=== PATIENT | female | born 1975 | race African-American/Black ===

== ENCOUNTER 2017-06-26 07:12 | Day surgery (SDC) | payer BC ==
[2017-06-25 09:59] VITALS: BMI 37.5
[2017-06-26 12:05] VITALS: TEMP 98.6
[2017-06-26 13:47] VITALS: BP 130/80; PULSE 70
== END 2017-06-26 13:40 | disposition home or self-care (01) ==
LOC: JASU-SURG 07:12
PROVIDERS: ATTEND Obstetrics & Gynecology
PROC: 0UDB7ZX Extraction of Endometrium, Via Natural or Artificial Opening, Diagnostic (ICD-10-PCS; principal; 2017-06-26)
PROC: 0UJD8ZZ Inspection of Uterus and Cervix, Via Natural or Artificial Opening Endoscopic (ICD-10-PCS; 2017-06-26)
DX: N92.0 Excessive and frequent menstruation with regular cycle (principal); N94.6 Dysmenorrhea, unspecified; D25.9 Leiomyoma of uterus, unspecified; E66.01 Morbid (severe) obesity due to excess calories
CPT/HCPCS: 36415; 84703; 86850; 86900; 86901; 88305-TC; 93005; 93010; 94760

== ENCOUNTER 2017-10-02 04:52 | Day surgery (SDC) | payer BC ==
[2017-09-25 16:30] VITALS: BMI 37.5
[~2017-10-02 04:52] MED LIST: BUPIVACAINE HCL/PF (5 MG/ML) 30 ML VIAL IJ ONE
--- NOTE | 2017-10-02 07:45 | HP ---
Past Medical History - Primary Care Physician PCP:: Florencio Childs - Admission Chief Complaint: 42yo P0020 admitted for bilateral tubal ligation. 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 No: Ascites, Cancer, Constipation, Crohn's Disease, Diverticulitis, Diverticulosis, Esophageal Varices, Gastritis, GERD, GI Bleed, Hemorrhoids, Hiatal Hernia, Inflamatory Bowel Disease, Irritable Bowel Disease, Pancreatitis, Peptic Ulcer Disease, Ulcerative Colitis Hepatobiliary: No: Cirrhosis, Cholelithiasis, Cholecystitis, Choledocholithiasis , Hepatitis A, Hepatitis B, Hepatitis C, Other Renal/: No: Renal Failure, Renal Inusuff, BPH, Cancer, Hematuria, Hemodialysis , Neurogenic Bladder, Renal Calculi, UTI, Other Reproductive: Yes: Ectopic , Fibroids, Other (right oophorectomy) ...: 2 ...Para: 0 ...Term: 0 ...: 0 ...Spon : 0 ...Induced : 1 Heme/Onc: No: Anemia, B12 Deficiency, Bleeding Disorder, Cancer, Current Chemotherapy, Current Radiation Therapy, Hemochromatosis, Hypercoaguable State, Myeloproliferative Synd, Sickle Cell Disease, Sickle Cell Trait, Thrombocytopenia, Other Infectious Disease: No: AIDS, C-Diff, Herpes Zoster, HIV, MRSA, STD's, Tuberculosis, VREF, Other Psych: No: Addictions, Anxiety, Bipolar, Depression, Panic, Psychosis, Schizophrenia, Other Musculoskeletal: No: Bursitis, Chronic low back pain, Hemiparesis, Hemiplegia, Osteoarthritis, Paraplegia, Other Rheumatology: No: Fibromyalgia, Gout, Lupus, Rheumatoid Arthritis, Sarcoidosis, Vasculitis, Other ENT: No: Allergic Rhinitis, Sinusitis, Other Endocrine: Yes: Other (insulin resistance, obesity) Dermatology: No: Basal Cell, Cellulitis, Eczema, Melanoma, Psoriasis, Squamous Cell, Other - Past Surgical History Hx Myomectomy: No Hx Transabdominal Cerclage: No Additional Surgical History: laparoscopic right oophorectomy, salpingectomy, ganglion cyst, hysteroscopy, D&C - Smoking History Smoking history: Never smoked Have you smoked in the past 12 months: No - Alcohol/Substance Use Hx Alcohol Use: Yes (occas) History of Substance Use: reports: None - Social History ADL: Independent 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 History of Recent Travel: No Home Medications - Allergies Allergies/Adverse Reactions: Allergies Allergy/AdvReac Type Severity Reaction Status Date / Time No Known Allergies Allergy Verified 09/25/17 16:30 - Home Medications Home Medications: Ambulatory Orders Metformin HCl [Glucophage] 2,000 mg PO ACDIN 06/25/17 Multivitamin [One Daily] 1 each PO DAILY 06/26/17 Chlorpheniramine Maleate [Chlortabs] 4 mg PO PRN PRN 09/25/17 Fluticasone Prop 0.05% Nasal [Flonase -] 1 spray NS PRN PRN 09/25/17 Family Disease History - Family Disease History Family Disease History: Heart Disease: Grandparent (HTN, CAD), Father (HTN), Mother (HTN) Review of Systems - Review of Systems Constitutional: reports: No Symptoms Eyes: reports: No Symptoms HENT: reports: No Symptoms Neck: reports: No Symptoms Cardiovascular: reports: No Symptoms Respiratory: reports: No Symptoms Gastrointestinal: reports: No Symptoms Genitourinary: reports: No Symptoms Breasts: reports: No Symptoms Reported Musculoskeletal: reports: No Symptoms Integumentary: reports: No Symptoms Neurological: reports: No Symptoms Endocrine: reports: No Symptoms Hematology/Lymphatic: reports: No Symptoms Psychiatric: reports: No Symptoms Pain Intensity: 0 Physical Exam-[facility] Vital Signs: Vital Signs Temperature 98.8 F 10/02/17 06:37 Pulse Rate 77 10/02/17 06:37 Respiratory Rate 20 10/02/17 06:37 Blood Pressure 125/82 10/02/17 06:37 O2 Sat by Pulse Oximetry (%) 98 10/02/17 06:37 Constitutional: Yes: Well Nourished, No Distress, Calm Eyes: Yes: WNL, Conjunctiva Clear HENT: Yes: WNL, Atraumatic, Normocephalic Neck: Yes: WNL, Supple, Trachea Midline Cardiovascular: Yes: WNL, Regular Rate and Rhythm Respiratory: Yes: WNL, Regular, CTA Bilaterally Gastrointestinal: Yes: WNL, Normal Bowel Sounds, Soft ...Rectal Exam: Yes: Deferred Renal/: Yes: WNL Pelvis: Yes: WNL External Genitalia: Yes: Normal Internal Exam Deferred: No Vaginal Exam: Yes: Normal Cervix: Yes: Normal Uterus: Yes: Enlarged Adnexa: Normal: Left, Right Musculoskeletal: Yes: WNL Extremities: Yes: WNL Integumentary: Yes: WNL Neurological: Yes: WNL, Alert, Oriented ...Motor Strength: WNL Psychiatric: Yes: WNL, Alert, Oriented Imaging - Results Ultrasound: Report Reviewed Assessment/Plan 42yo P0 admitted for surgical sterilization. The pt prefers laparoscopic ( bilateral) tubal ligation. We had discussed the risks, benefits, alternatives of surgery at length including but not limited to infection, bleeding, scarring , perforation, amenorrhea, infertility, hysterectomy, injury to surrounding/ underlying organs or structure, need for additional surgery to repair/treat any complications, etc. The patient verbalized understanding and requested to proceed with surgery. I emphasized that all surgeries have risks and no guarantees can be provided.
[2017-10-02] MEDS ORDERED: LIDOCAINE HCL/PF 2% SDV 5ML VIAL ONE (07:52)
[2017-10-02] MEDS ORDERED: PROPOFOL 20 ML ONE ×2 (07:52)
[2017-10-02] MEDS ORDERED: MIDAZOLAM HCL 2 MG/2 ML SINGLE DOSE VIAL ONE (07:53)
[2017-10-02] MEDS ORDERED: BUPIVACAINE HCL/PF 0.5% (5MG/ML) 10 ML VIAL ONE (07:53)
[2017-10-02] MEDS ORDERED: ROCURONIUM BROMIDE 50 MG/5 ML VIAL ONE (07:53)
[2017-10-02] MEDS ORDERED: KETOROLAC TROMETHAMINE 30 MG/1 ML VIAL ONE (08:18)
[2017-10-02] MEDS ORDERED: hydrALAZINE HCL 20 MG/ML VIAL ONE (08:34)
[2017-10-02] MEDS ORDERED: GLYCOPYRROLATE 0.2 MG/1 ML VIAL ONE (08:38)
[2017-10-02] MEDS ORDERED: NEOSTIGMINE METHYLSULFATE 0.5 MG/ML - 10 ML MDV ONE (08:39)
[2017-10-02] MEDS ORDERED: BUPIVACAINE HCL/PF (5 MG/ML) 30 ML VIAL IJ ONE (08:45)
--- NOTE | 2017-10-02 09:13 | OP ---
Operative Note - Note: Operative Date: 10/02/17 Pre-Operative Diagnosis: Sterilization Operation: Laparoscopic left Fallopian tube fulguration Findings: 1 Enlarged uterus with multiple fibroids 2 Surgically absent right Fallopian tube and ovary 3 Left fallopian tube with multiple adhesions to left ovary, round ligament and bowel. 4 Left round ligament shortened and displaced by fibroids, and adherent to left pelvic side-wall 5 Small endometriosis implants in bladder and left ovary 6 Upper abdomen, appendix, bowel, liver, stomach normal Post-Operative Diagnosis: Same as Pre-op Surgeon: Florencio Childs Help Desk Support: Lm Avery Anesthesiologist/DOCUMENT SPECIALIST: Dayan Hess Anesthesia: General Estimated Blood Loss (mls): 0 Drains & Tubes with Location: Green Cath Drains, Volume Out (mls): 100 Blood Volume Replaced (mls): 0 Fluid Volume Replaced (mls): 700 Operative Report Dictated: Yes
[2017-10-02] MEDS ORDERED: MEPERIDINE HCL CARPU-JECT 25 MG/1 ML DISP.SYRIN IVPUSH ONE (09:30)
[2017-10-02] MEDS ORDERED: ONDANSETRON 4 MG/2 ML VIAL ONE (10:07)
--- NOTE | 2017-10-02 10:30 | OP ---
DATE OF OPERATION: 10/02/2017 PREOPERATIVE DIAGNOSIS: Surgical sterilization. POSTOPERATIVE DIAGNOSIS: Surgical sterilization. PROCEDURE: Laparoscopic left fallopian tube fulguration via bipolar cautery. SURGEON: Florencio Childs MD CELLULOSE INSULATION HELPER: Lm Avery MD ANESTHESIOLOGIST: Dayan Hess MD ANESTHESIA: General endotracheal. COMPLICATIONS: None. ESTIMATED BLOOD LOSS: Zero. INTRAVENOUS FLUIDS: 700 mL. PATHOLOGY: None. URINE OUTPUT: Clear urine,100 mL, at the end of the procedure. FINDINGS: Examination under anesthesia revealed a markedly enlarged uterus with irregular contours, and the uterus appeared mobile within the pelvic cavity. Laparoscopy revealed a markedly enlarged uterus with multiple fibroids throughout. The right fallopian tube and ovary were surgically absent, consistent with patient's previous history of salpingo-oophorectomy. The left fallopian tube was noted to be adherent to the left ovary and left round ligament. The fimbriated end of the left fallopian tube was also adherent to the bowel. The left round ligament was shortened by multiple fibroids and displaced laterally. The left round ligament was also adherent to the left pelvic sidewall. There were several small endometriosis implants noted on the bladder as well as the left ovary. The upper abdomen was observed to be within normal limits, with normal appendix, normal bowel, normal liver, and normal visualized portions of the stomach. DESCRIPTION OF PROCEDURE: The patient was met preoperatively. Risks, benefits, and alternatives of surgery were discussed in detail. All questions were answered. The patient was then brought to the OR with the IV running. She was placed on the surgical table in supine position. The general anesthesia was achieved without difficulty. The patient was then placed in a dorsal lithotomy position using adjustable Delio stirrups. The patient was examined under anesthesia. The examination was somewhat limited by patient's body habitus. An enlarged uterus with irregular contours and fibroids was noted on the examination. The uterus appeared to be mobile within the pelvic cavity. The cervix was within normal limits. The patient was prepped and draped in the usual sterile fashion. A Green catheter was inserted and left to drain to gravity. A Humi uterine manipulator was inserted inside the uterus with a sterile technique. The surgeons then regloved and proceeded with the laparoscopy part of the procedure. A 5-mm infraumbilical incision was made with a knife. A Veress needle was inserted through the umbilical incision into peritoneal cavity. Intraperitoneal placement was confirmed. The pneumoperitoneum was then produced using CO2 gas, with the intraabdominal pressure limited to 20 mmHg. The Veress needle was then removed, and a 5-mm Optiview trocar was placed through the umbilical incision without complications. The laparoscope was introduced through the umbilical trocar sleeve. Survey of the abdomen, pelvis was performed. The pelvis and abdomen had no adhesions. The bowel, appendix, liver, and visualized portion of the stomach appeared to be within normal limits. The uterus was noted to be markedly enlarged with multiple fibroids. The right ovary and fallopian tube were surgically absent, consistent with the patient's previous history. The left round ligament was shortened and displaced by multiple fibroids. The left round ligament was also adherent to the left pelvic sidewall. The left fallopian tube was adherent to the round ligament and left ovary. The fimbriated portion of the left fallopian tube was also adherent to the bowel. There were several small endometriosis implants noted on the left ovary and bladder, and the uterus was with limited mobility inside the pelvis due to the mass effect of the fibroids. The left fallopian tube was traced from the uterus all the way to the fimbriated end. Most of the left fallopian tube was clear for fulguration with easy access. The bipolar cautery was then used to cauterize the midportion of the left fallopian tube in the length of approximately 3 cm. Thorough and complete cautery was assured. Once this was completed, all of the instruments were removed from the patient. Sponge, lap, and instrument counts were correct. The Humi and Green catheters were also removed. The incisions were closed using a 4-0 Biosyn suture, with good hemostasis and approximation. The patient was returned to supine position. She was transferred to recovery room awake and in stable condition. Nicol [id number]
[2017-10-02 11:07] VITALS: TEMP 98
[2017-10-02] MEDS ORDERED: oxyCODONE HCL 5 MG TABLET PO PRN (11:19)
[2017-10-02] MEDS ORDERED: ONDANSETRON 4 MG/2 ML VIAL IVPUSH PRN (11:19)
[2017-10-02] MEDS ORDERED: ACETAMINOPHEN 500 MG TABLET (FP) PO PRN (11:19)
[2017-10-02] MEDS ORDERED: LACTATED RINGERS SOLUTION 1,000 ML IV SCH (11:30)
[2017-10-02 14:19] VITALS: BP 122/62; PULSE 79
== END 2017-10-02 14:37 | disposition home or self-care (01) ==
LOC: JASU-SURG 04:52
PROVIDERS: ATTEND Obstetrics & Gynecology
PROC: 0U564ZZ Destruction of Left Fallopian Tube, Percutaneous Endoscopic Approach (ICD-10-PCS; principal; 2017-10-02 07:30)
DX: Z30.2 Encounter for sterilization (principal)
CPT/HCPCS: 36415; 84703; 86850; 86900; 86901